=== PATIENT | female | born 1955 | race Caucasian/White ===

== ENCOUNTER 2018-11-14 17:47 | Emergency (ER) | payer SELFPAY ==
[2018-11-14 19:08] LABS: #Basophils 0.1 thou/uL (0.0-0.2); #Eosinphils 0.1 thou/uL (0.0-0.7); #Lymphocytes 1.8 thou/uL (1.20-3.40); #Monocytes 0.4 thou/uL (0.11-0.59); #Neutrophils 3.7 thou/uL (1.40-6.50); %Basophils 1.3 % (0.0-1.0); %Eosinophils 1.1 % (0.0-10.0); %Lymphocytes 29.8 % (21.0-51.0); %Monocytes 7.2 % (0.0-10.0); %Neutrophils 60.6 % (42.0-75.0); Hemoglobin 10.6 g/dL (12.0-16.0); Mean Corpuscular HGB CONC 32.5 g/dL (32.0-36.0); Mean Corpuscular Hemoglobin 30.6 pg (27.0-31.0); Mean Corpuscular Volume 93.9 fL (78.0-98.0); Mean Platelet Volume 6.9 fL (7.4-10.4); Platelet Count 318 thou/uL (130-400); RBC Distribution Width 13.3 % (11.5-14.5); Red Blood Cell (RBC) Count 3.46 mill/uL (4.20-5.40)
[2018-11-14 19:27] LABS: ALT (SGPT) 33 U/L (8-55); AST (SGOT) 39 U/L (5-34); Alkaline Phosphatase 144 U/L (40-150); Anion Gap 14 mmol/L (10-20); BUN (Urea Nitrogen) 11 mg/dL (9.8-20.1); Bilirubin, Total Less than 0.2 mg/dL (0.2-1.2); Calc. Creatinine Clearance 0 mL/min (70-130); Calcium 9.3 mg/dL (7.8-10.44); Carbon Dioxide 24 mmol/L (23-31); Chloride 108 mmol/L (98-107); Estimated GFR-MDRD 74; Globulin 3.4 g/dL (2.4-3.5); Glucose 107 mg/dL (80-115); Potassium 3.3 mmol/L (3.5-5.1); Protein, Total 7.4 g/dL (6.0-8.3); Sodium 143 mmol/L (136-145)
--- NOTE | 2018-11-14 19:44 | ULT ---
EXAM: Left lower extremity venous Doppler HISTORY: left lower extremity edema and pain FINDINGS: Grayscale, color-flow, Doppler evaluation, spectral analysis of the left lower extremity venous struc tures is performed with 2-D imaging. The left common femoral, superficial femoral, popliteal, posterior tibial, proximal greater saphenous and profunda femoral veins are imaged. There is normal luminal compressibility, flow, and augmentation the visualized deep venous structures of the left lower extremity. IMPRESSION: No evidence of a deep vein thrombosis in the visualized deep venous structures left lower extremity.
== END 2018-11-14 21:10 | disposition home or self-care (01) ==
LOC: ERS 17:47
DX: L03.116 Cellulitis of left lower limb (principal); I10 Essential (primary) hypertension; F41.9 Anxiety disorder, unspecified; F17.210 Nicotine dependence, cigarettes, uncomplicated
CPT/HCPCS: 36415; 80053; 85025; 85379

== ENCOUNTER 2020-05-11 12:30 | Inpatient (IN) | payer MEDICARE ==
[2020-05-15 10:43] VITALS: BMI 19.5
[2020-05-16] MEDS ORDERED: Rocuronium Bromide 10 MG/ML (10ML VIAL) ONE (11:30)
[2020-05-16] MEDS ORDERED: Ondansetron PF 4 MG/2 ML Vial ONE (11:30)
[2020-05-16] MEDS ORDERED: Dexamethasone 20 MG/5 ML VIAL ONE (11:30)
[2020-05-16] MEDS ORDERED: Lidocaine 1.5% w/Epi 1:200K 30 ML VIAL (Epid Use) ONE (11:30)
[2020-05-16] MEDS ORDERED: Lidocaine 1% PF 5 ML VIAL ONE ×2 (11:30)
[2020-05-16] MEDS ORDERED: PHENYLEPHRINE-NS 100 MCG/ML 10 ML SYRINGE ONE (11:30)
[2020-05-16] MEDS ORDERED: PROPOFOL 200 MG/20 ML VIAL ONE (11:30)
[2020-05-16] MEDS ORDERED: EPHEDRINE 25 MG/5 ML SYRINGE ONE (11:30)
[2020-05-16] MEDS ORDERED: Glycopyrrolate 0.2 MG/ML 5 ML SYRINGE ONE (11:30)
[2020-05-16] MEDS ORDERED: Tranexamic Acid 1,000 MG/10 ML VIAL ONE (12:50)
[2020-05-16] MEDS ORDERED: Vancomycin 1 GM/200 ML BAG ONE (12:50)
[2020-05-16] MEDS ORDERED: Sodium Chloride 0.9% 100 ML ONE (12:50)
[2020-05-16] MEDS ORDERED: Scopolamine 1.5 mg/72 hour Patch ONE (12:50)
[2020-05-16] MEDS ORDERED: Zolpidem Tartrate 5 MG TAB PO PRN ×2 (12:56→14:00)
[2020-05-16] MEDS ORDERED: diphenhydrAMINE 25 MG CAP PO PRN ×2 (12:56→14:00)
[2020-05-16] MEDS ORDERED: Acetaminophen 325 MG TAB PO PRN (12:56)
[2020-05-16] MEDS ORDERED: Fentanyl 100 MCG/2 ML VIAL SLOW IVP PRN (12:56)
[2020-05-16] MEDS ORDERED: Ondansetron PF 4 MG/2 ML Vial IVP PRN ×2 (12:56→14:00)
[2020-05-16] MEDS ORDERED: Promethazine HCl 25 MG/ML VIAL IM PRN ×2 (12:56→14:00)
[2020-05-16] MEDS ORDERED: HYDROcodone/Acetaminophen 10/325 mg Tablet PO PRN ×2 (12:56)
[2020-05-16] MEDS ORDERED: Buprenorphine 8mg/Naloxone 2mg per 1 FILM SL PRN (12:57)
[2020-05-16] MEDS ORDERED: Famotidine 20 MG TAB PO PRN (12:57)
[2020-05-16] MEDS ORDERED: tiZANidine HCl 4 MG TAB PO PRN (12:57)
[2020-05-16] MEDS ORDERED: Aspirin/APAP/Caffeine Tab (Excedrin Migraine) PO PRN (12:57)
[2020-05-16] MEDS ORDERED: Fentanyl 100 MCG/2 ML VIAL ONE ×3 (13:07→15:42)
[2020-05-16] MEDS ORDERED: Bupivacaine 0.25% HCL 30 ML VIAL ONE (13:07)
[2020-05-16] MEDS ORDERED: Midazolam HCl 2 mg/2 ml Vial ONE (13:09)
[2020-05-16] MEDS ORDERED: Acetaminophen 500 MG TAB PO PRN (13:56)
[2020-05-16] MEDS ORDERED: Bupivacaine 0.25% 10 ML VIAL EPIDURAL PRN (14:00)
[2020-05-16] MEDS ORDERED: Naloxone HCl 0.4 mg/ml Vial IVP PRN (14:00)
[2020-05-16] MEDS ORDERED: diphenhydrAMINE 50 MG/ML VIAL IVP PRN (14:00)
[2020-05-16] MEDS ORDERED: traMADol HCl 50 MG TAB PO PRN ×2 (14:00)
[2020-05-16] MEDS ORDERED: Promethazine HCl 25 MG SUPP PR PRN (14:00)
[2020-05-16] MEDS ORDERED: diphenhydrAMINE 50 MG/ML VIAL IM PRN (14:00)
[2020-05-16] MEDS ORDERED: Hydrocerin (Eucerin) Cream 120 gm Jar TOP PRN (14:00)
[2020-05-16] MEDS ORDERED: Ketorolac Tromethamine 30 MG/ML VIAL IVP SCH (14:00)
[2020-05-16] MEDS ORDERED: Naloxone HCl 0.4 mg/ml Vial IV PRN (14:00)
[2020-05-16] MEDS ORDERED: HYDROcodone/Acetaminophen 5/325 mg Tablet PO PRN ×2 (14:00)
[2020-05-16] MEDS ORDERED: fentaNYL Citrate/PF 500 MCG, Bupivacaine 10 ML in Sodium Chloride 0.9% 80 ML EPIDURAL SCH (14:00)
[2020-05-16] MEDS ORDERED: Ketorolac Tromethamine 30 MG/ML VIAL ONE (15:36)
--- NOTE | 2020-05-16 16:10 | RAD ---
Exam:2 views left hip HISTORY: Status post arthroplasty COMPARISON: 04/05/2020 FINDINGS: Postsurgical changes compatible with left hip arthroplasty. There are expected postoperativ e changes in the soft tissues. Near anatomic alignment. IMPRESSION: Findings compatible with left hip arthroplasty.
[2020-05-16] MEDS: Ketorolac Tromethamine 30 MG/ML VIAL IVP SCH ×2 (19:56→23:40)
[2020-05-16] MEDS ORDERED: Sodium Chloride 0.9% 500 ML IV SCH (20:00)
[2020-05-16] MEDS: Sodium Chloride 0.9% 1,000 ML IV SCH (20:30)
[2020-05-16] MEDS: CEFAZOLIN 2 GM in Premix Bag 1 BAG IVPB SCH (20:36)
[2020-05-16] MEDS: Aspirin 81 mg Enteric Coated Tablet PO SCH (21:34)
--- NOTE | 2020-05-16 21:42 | PDOC.HHP ---
Hospitalist HPI - History of Present Illness Left hip pain History of Present Illness: The patient is a 65-year-old female with a past medical history significant for scoliosis and degenerative joint disease and GERD that presents to the hospital for a scheduled left total hip replacement by Dr. Berry. The patient has had increased pain and swelling to her left lower extremity. For these reasons she was scheduled for a left total hip replacement. Apparently, after surgery, the patient came to the floor with a low blood pressure and was lethargic. The patient was not getting any IV fluids and did have a fentanyl block infusing. The nurse called Dr. Dobbs, who was the on-call orthopedic. The block was stopped. IV fluids were started. We were consulted for management of the blood pressure. The patient reports that she has a history of low blood pressure. She denies any fever or chills. No recent illness. She denies feeling short of breath, cough or wheezing. She is not on any chronic steroids. She denies any chest pain, heart palpitations, lightheadedness. She denies any abdominal pain, nausea, vomiting, diarrhea. She denies any hemoptysis, hematochezia/melena. She denies any endocrine disorders. ED Course: Direct admit. Hospitalist ROS - Review of Systems All other systems reviewed; all pertinent +/- noted in HPI/Subj - Medication Medications: Active Medications Generic Name Dose Route Start Last Admin Trade Name Freq PRN Reason Stop Dose Admin Aspirin 81 mg 05/16/20 21:00 05/16/20 21:34 Aspirin 81 Mg Enteric Coated Tablet PO 81 mg BID GREG Administration Sodium Chloride 1,000 mls @ 125 mls/hr 05/16/20 20:00 05/16/20 20:30 Normal Saline 0.9% IV 1,000 mls .Q8H GREG Administration Ketorolac Tromethamine 30 mg 05/16/20 18:00 05/16/20 19:56 Ketorolac Tromethamine 30 Mg/Ml Vial IVP 05/18/20 12:01 Not Given Q6HR [facility] Home medications: 1. Excedrin Migraine as needed 2. Pepcid 20 mg p.o. twice daily as needed 3. Woman's 50+ multivitamin daily 4. Tizanidine as needed. Allergies: Latex, ciprofloxacin Hospitalist History - Past Medical History Source: patient, RN notes reviewed Cardiac: reports: no pertinent history Pulmonary: reports: no pertinent history STUDIO MANAGER: reports: Migraine Musculoskeletal: reports: Other (Degenerative joint disease, scoliosis) - Past Surgical History Past Surgical History: reports: (X5), Hernia Repair - Family History Family History: reports: no pertinent history Other Family History: Noncontributory to this case - Social History Smoking Status: Current every day smoker (Half pack per day) Tobacco Type: cigarettes Alcohol: reports: None Drugs: reports: none Living Situation: Alone Occupation: Works as a [employer]ATOR Activity level: uses cane/walker - Exam General Appearance: NAD, awake alert. negative: ill appearing Eye: PERRL, anicteric sclera ENT: normocephalic atraumatic, dry oral mucosa Neck: supple, symmetric, no JVD Heart: RRR, no murmur, no gallops, no rubs, normal peripheral pulses Respiratory: CTAB, no wheezes, no rales, no ronchi, normal chest expansion, no tachypnea Gastrointestinal: soft, non-tender, normal bowel sounds, no bruit, no guarding, no rigidity Extremities: no cyanosis, no edema Skin: no rashes Neurological: cranial nerve grossly intact, no focal deficits. negative: facial droop, speech deficit Musculoskeletal - other findings: Status post left hip replacement Psychiatric: normal affect, A&O x 3 Hospitalist Results - Labs Lab results: Reviewed 05/09/2020: Sodium 142, potassium 4.8, chloride 107, CO2 23, BUN 29, creatinine 0.86, glucose 89, calcium 10 WBC 7.9, hemoglobin 12.6, hematocrit 36, platelets 236 Covid negative Hospitalist H&P A/P - Problem (1) Hypotension Status: Acute (2) Degenerative joint disease Code(s): M19.90 - UNSPECIFIED OSTEOARTHRITIS, UNSPECIFIED SITE Status: Chronic (3) GERD (gastroesophageal reflux disease) Code(s): K21.9 - GASTRO-ESOPHAGEAL REFLUX DISEASE WITHOUT ESOPHAGITIS Status: Chronic (4) Status post total hip replacement, left Code(s): Z96.642 - PRESENCE OF LEFT ARTIFICIAL HIP JOINT Status: Acute - Plan Plan: 65/F with PMH DJD, GERD presents for scheduled left total hip replacement. We were consulted for medical management for low blood pressure reading. Patient admitted to surgical floor, inpatient status. Expected length of stay greater than 2 midnights. #Hypotension Nursing called to report blood pressure reading 80s/50s. Called Dr. Dobbs, on-call orthopedic. Ordered IV fluids and stop fentanyl block. Upon assessment, patient alert and oriented x4. BP 98/65. Afebrile. Glucose WNL. Continue IV fluid hydration, analgesia as needed. #Degenerative joint disease Chronic. #GERD Takes Pepcid twice daily as needed. Agreed to continue home dose of Pepcid. #Status post total hip replacement, left Performed by Dr. Berry. Clinical course per orthopedics. Aspirin for DVT prophylaxis. Pepcid for GI prophylaxis. Fentanyl nerve block per anesthesia. Full code. Family contact is her sister Charmaine Severino at [phone]. Discussed the case with Dr. Samaniego.
[2020-05-17] MEDS: Ketorolac Tromethamine 30 MG/ML VIAL IVP SCH ×4 (05:15→23:35)
[2020-05-17] MEDS: CEFAZOLIN 2 GM in Premix Bag 1 BAG IVPB SCH (05:15)
[2020-05-17] MEDS: Sodium Chloride 0.9% 1,000 ML IV SCH ×4 (05:16→23:35)
[2020-05-17 05:41] LABS: Hemoglobin 10.4 g/dL (12.0-16.0); Mean Corpuscular HGB CONC 33.4 g/dL (32.0-36.0); Mean Corpuscular Hemoglobin 33.6 pg (27.0-31.0); Mean Platelet Volume 7.1 fL (7.4-10.4); Platelet Count 206 thou/uL (130-400); RBC Distribution Width 11.5 % (11.5-14.5); Red Blood Cell (RBC) Count 3.11 mill/uL (4.20-5.40); White Blood Cell (WBC) Count 9.6 thou/uL (4.8-10.8)
[2020-05-17 06:01] LABS: Anion Gap 12 mmol/L (10-20); BUN (Urea Nitrogen) 16 mg/dL (9.8-20.1); Calc. Creatinine Clearance 62 mL/min (70-130); Calcium 8.4 mg/dL (7.8-10.44); Carbon Dioxide 23 mmol/L (23-31); Chloride 109 mmol/L (98-107); Estimated GFR-MDRD 83; Glucose 113 mg/dL (80-115); Potassium 4.5 mmol/L (3.5-5.1); Sodium 139 mmol/L (136-145)
[2020-05-17] MEDS: Ferrous Gluconate 324 MG TAB PO SCH ×2 (08:45→18:17)
[2020-05-17] MEDS: Multivitamin W/ Minerals 1 TAB PO SCH (08:46)
[2020-05-17] MEDS: Aspirin 81 mg Enteric Coated Tablet PO SCH ×2 (08:46→19:50)
[2020-05-17] MEDS: Senokot S 8.6-50 MG TAB PO SCH ×2 (08:46→19:50)
[2020-05-17] MEDS ORDERED: Non-Formulary Item 1 EACH (Mv-Mn/Folic Ac/Calcium/Vit K1 [Women's 50 Plus Multivit Tab] 1 PO SCH (09:00)
--- NOTE | 2020-05-17 09:05 | OP ---
DATE OF PROCEDURE: 05/16/2020 This is Arnie Loving PA-C dictating a report for Florian Berry MD. PREOPERATIVE DIAGNOSIS: End-stage bicompartmental osteoarthritis, left hip. POSTOPERATIVE DIAGNOSIS: End-stage bicompartmental osteoarthritis, left hip. PROCEDURE PERFORMED: Press-fit left total hip arthroplasty. COTTON CLASSER AIDE: Arnie Loving PA-C ANESTHESIA: General via endotracheal tube augmented with indwelling epidural. COMPONENTS USED: [employer] Trident II titanium press-fit 48 mm press-fit acetabular shell with an Accolade II press-fit size 4 hip stem, 0 degree polyethylene fixed bearing insert, and a Biolox 36 mm outer diameter, -5 neck length ceramic femoral head. ESTIMATED BLOOD LOSS: 100. FINDINGS: End-stage severe degenerative bicompartmental disease, [id number] arthrosis, periarticular osteophyte formation, large serous effusion, hypertrophic synovium, and changes consistent with chronic degenerative osteoarthritis. DRAINS: None. SPECIMENS: None. COMPLICATIONS: None. COUNTS: Correct. INPUT: 1 L crystalloid. OUTPUT: 500 mL clear yellow urine. INDICATION FOR SURGERY: Kassandra is a 65-year-old white female, who has had progressive left hip groin and thigh pain, and problem with standing or walking for the last 5 to 7 years. She has failed conservative management, elected to proceed with total hip arthroplasty as definitive treatment of her pain. PROCEDURE IN DETAIL: After informed consent was obtained in the preoperative holding area, the patient was taken to the operative suite where general anesthesia was induced. The patient was then positioned in the lateral decubitus position. The hip was then prepped and draped in usual sterile fashion. The patient received preoperative antibiotics. Prior to incision, time-out was called and all members of the surgical team agreed upon site, surgeon, and patient. After this, a longitudinal incision was made directly over the trochanter, noted by palpation extending 2 fingerbreadths above and below the trochanter. The deeper subcutaneous layer was undermined with Bovie electrocautery. The iliotibial band was encountered and incised sharply and the plane below this was developed bluntly. A Charnley retractor was placed to hold this opened. The lateral aspect of the trochanter and the abductor muscles were encountered and then reflected anteriorly off the trochanter using Bovie electrocautery. Once this was completed, the anterior capsule was then encountered and identified and copious capsulotomy was carried out, exposing the femoral neck and head. Dislocation maneuver was then performed and an in situ provisional neck cut was then made using the oscillating saw. Attention was then turned to acetabular preparation. Sequential reaming was carried out up to the appropriate diameter and a trial was then malleted into place with good firm resistance and no pullout. The permanent acetabular shell was then malleted squarely into place, as was the appropriate liner. Once completed, the wound was copiously irrigated and attention was then turned to femoral preparation. Flexion and external rotation were performed of the exposed thigh and femoral elevators were then placed at the proximal aspect of the wound. Canal finder was used to establish the length of the canal and sequential reaming was carried out, followed by broaching. Once the appropriate stability was established with the trial broaches with flexion, extension and rotational stability, we did trial with neutral and 2 mm offset incremental necks. Once the appropriate size was decided upon, with good stability noted with flexion, extension, internal and external rotation and shuck being negative, we removed the femoral trial broach and malleted into place the permanent prosthesis with good firm fit, which was also stable to rotation. Again, the hip felt very stable to flexion, extension, internal and external rotation. Leg lengths appeared near anatomic clinically and we were quite happy with prosthesis placement. Copious irrigation was then carried out through the entirety of the wound. Primary closure of the abductors was accomplished with interrupted #2 Vicryl [id number] stitches and the IT band was then closed with interrupted #2 Vicryl, oversewn with a #2 running barbed Quill stitch. Subcutaneous fascia was closed with running barbed Quill stitch and a subcuticular Monocryl barbed Quill stitch was used for skin closure and augmented with skin cement. A sterile dressing was applied. The procedure was terminated without any complication. All counts were correct. The patient was awakened in the operative suite and taken to the recovery room in stable condition. The assistant track coach surgeon helped throughout the procedure by positioning the patient, stabilizing the limb, holding retractors, aligning the prosthesis, and closure of procedure site. The assistant track coach/co-surgeon was present through the entire procedure and was responsible for providing exposure, tissue retraction and any necessary limb or tissue manipulation required to obtain necessary reduction or hardware placement. The assistant track coach/co-surgeon also provided bleeding control, tissue closure, and suturing in conjunction with the primary surgeon. Job ID: [id number]
--- NOTE | 2020-05-17 14:00 | PDOC.HOSPP ---
- Subjective Encounter Date: 05/17/20 Subjective: Patient was seen and examined. She denies any new complaints today. - Objective Vital Signs & Weight: Vital Signs (12 hours) Temp Pulse Resp BP BP BP BP 05/17/20 11:04 99.0 F 66 16 103/50 L 05/17/20 09:42 89/52 L 101/60 05/17/20 08:00 05/17/20 07:27 99.2 F 66 16 94/53 L 05/17/20 05:18 98.1 F 72 14 104/65 Pulse Ox 05/17/20 11:04 94 L 05/17/20 09:42 05/17/20 08:00 96 05/17/20 07:27 96 05/17/20 05:18 98 Weight Weight 110 lb I&O: 05/16/20 05/17/20 05/18/20 06:59 06:59 06:59 Intake Total 2200 Output Total 1225 Balance 975 Result Diagrams: 05/17/20 05:25 05/17/20 05:25 Hospitalist ROS - Medication Medications: Active Medications Generic Name Dose Route Start Last Admin Trade Name Freq PRN Reason Stop Dose Admin Aspirin 81 mg 05/16/20 21:00 05/17/20 08:46 Aspirin 81 Mg Enteric Coated Tablet PO 81 mg BID GREG Administration Ferrous Gluconate 324 mg 05/17/20 08:00 05/17/20 08:45 Ferrous Gluconate 324 Mg Tab PO 324 mg BID-WM GREG Administration Sodium Chloride 1,000 mls @ 125 mls/hr 05/16/20 20:00 05/17/20 13:40 Normal Saline 0.9% IV 1,000 mls .Q8H GREG Administration Iron/Minerals/Multivitamins 1 tab 05/17/20 09:00 05/17/20 08:46 Multivitamin W/ Minerals 1 Tab PO 1 tab DAILY GREG Administration Ketorolac Tromethamine 30 mg 05/16/20 18:00 05/17/20 13:39 Ketorolac Tromethamine 30 Mg/Ml Vial IVP 05/18/20 12:01 30 mg Q6HR GREG Administration Senna/Docusate Sodium 2 tab 05/17/20 09:00 05/17/20 08:46 Senokot S 8.6-50 Mg Tab PO 2 tab BID GREG Administration - Exam General Appearance: awake alert ENT: normocephalic atraumatic Neck: supple, no JVD Heart: RRR Respiratory: no tachypnea Gastrointestinal: soft Neurological: cranial nerve grossly intact, no focal deficits Hosp A/P (1) Hypotension Status: Acute (2) Status post total hip replacement, left Code(s): Z96.642 - PRESENCE OF LEFT ARTIFICIAL HIP JOINT Status: Acute (3) Degenerative joint disease Code(s): M19.90 - UNSPECIFIED OSTEOARTHRITIS, UNSPECIFIED SITE Status: Chronic (4) GERD (gastroesophageal reflux disease) Code(s): K21.9 - GASTRO-ESOPHAGEAL REFLUX DISEASE WITHOUT ESOPHAGITIS Status: Chronic - Plan The patient hypotension has improved since yesterday. Continue IV hydration for the next 24 hours. Continue postoperative management per surgical team. Lovenox for DVT prophylaxis. PT and OT evaluation.
[2020-05-17] MEDS ORDERED: Sodium Chloride 0.9% 1,000 ML IV SCH (23:45)
[2020-05-18] MEDS ORDERED: Hydrocortisone Sod Succ/PF 100 mg/2 ml Vial IVP SCH (00:30)
--- NOTE | 2020-05-18 01:39 | PDOC.EVN ---
Event Note - Event Note Event Note: Nursing called, patient hypotensive, asymptomatic. Afebrile. Fentanyl block held. Gave 1L NS. Review of vital signs shows BP stable throughout dayshift, then drops at night. Likely normal physiologic response at night. No signs of FVO. Will give 1 more 500ml bolus. Discussed with Dr. Samaniego.
[2020-05-18] MEDS ORDERED: Sodium Chloride 0.9% 500 ML IV SCH (01:45)
[2020-05-18 05:24] LABS: Hemoglobin 8.5 g/dL (12.0-16.0); Mean Corpuscular HGB CONC 32.2 g/dL (32.0-36.0); Mean Platelet Volume 7.1 fL (7.4-10.4); Platelet Count 147 thou/uL (130-400); RBC Distribution Width 11.7 % (11.5-14.5); Red Blood Cell (RBC) Count 2.58 mill/uL (4.20-5.40)
[2020-05-18] MEDS: Ketorolac Tromethamine 30 MG/ML VIAL IVP SCH ×2 (05:41→12:48)
[2020-05-18 07:50] VITALS: BP 91/51; TEMP 97.9
[2020-05-18] MEDS: Ferrous Gluconate 324 MG TAB PO SCH ×3 (09:32→16:32)
[2020-05-18] MEDS: Aspirin 81 mg Enteric Coated Tablet PO SCH (09:33)
[2020-05-18] MEDS: Multivitamin W/ Minerals 1 TAB PO SCH (09:34)
[2020-05-18] MEDS: Senokot S 8.6-50 MG TAB PO SCH (09:34)
[2020-05-18] MEDS ORDERED: HYDROcodone/Acetaminophen 10/325 mg Tablet PO PRN ×2 (10:26)
--- NOTE | 2020-05-18 11:58 | PDOC.HOSPP ---
- Subjective Encounter Date: 05/18/20 Subjective: Patient has no new complaints today. She denies any dizziness, palpitations, chest pain, or syncope. - Objective Vital Signs & Weight: Vital Signs (12 hours) Temp Pulse Resp BP BP Pulse Ox 05/18/20 09:38 95 05/18/20 07:49 97.9 F 52 L 12 91/51 L 92 L 05/18/20 03:25 98.3 F 75 16 85/51 L 95 05/18/20 02:35 57 L 92/58 L Weight Admit Weight 110 lb Weight 110 lb I&O: 05/17/20 05/18/20 05/19/20 06:59 06:59 06:59 Intake Total 2200 4505 Output Total 1225 2325 Balance 975 2180 Result Diagrams: 05/18/20 05:05 05/17/20 05:25 Hospitalist ROS - Medication Medications: Active Medications Generic Name Dose Route Start Last Admin Trade Name Freq PRN Reason Stop Dose Admin Aspirin 81 mg 05/16/20 21:00 05/18/20 09:33 Aspirin 81 Mg Enteric Coated Tablet PO 81 mg BID GREG Administration Ferrous Gluconate 324 mg 05/17/20 08:00 05/18/20 09:32 Ferrous Gluconate 324 Mg Tab PO 324 mg BID-WM GREG Administration Sodium Chloride 1,000 mls @ 125 mls/hr 05/16/20 20:00 05/17/20 23:35 Normal Saline 0.9% IV 1,000 mls .Q8H GREG Administration Iron/Minerals/Multivitamins 1 tab 05/17/20 09:00 05/18/20 09:34 Multivitamin W/ Minerals 1 Tab PO 1 tab DAILY GREG Administration Ketorolac Tromethamine 30 mg 05/16/20 18:00 05/18/20 05:41 Ketorolac Tromethamine 30 Mg/Ml Vial IVP 05/18/20 12:01 30 mg Q6HR GREG Administration Ondansetron HCl 4 mg 05/16/20 14:00 05/17/20 22:31 Ondansetron Pf 4 Mg/2 Ml Vial IVP 4 mg Q6H PRN Administration Nausea/Vomiting Senna/Docusate Sodium 2 tab 05/17/20 09:00 05/18/20 09:34 Senokot S 8.6-50 Mg Tab PO 2 tab BID GREG Administration Tizanidine HCl 4 mg 05/16/20 12:57 05/17/20 14:36 Tizanidine Hcl 4 Mg Tab PO 4 mg Q6H PRN Administration Muscle Spasm - Exam General Appearance: awake alert ENT: normocephalic atraumatic Neck: supple, no JVD Respiratory: normal chest expansion, no tachypnea Extremities: no cyanosis, no clubbing Neurological: cranial nerve grossly intact, no focal deficits Hosp A/P (1) Hypotension Status: Acute (2) Status post total hip replacement, left Code(s): Z96.642 - PRESENCE OF LEFT ARTIFICIAL HIP JOINT Status: Acute (3) Degenerative joint disease Code(s): M19.90 - UNSPECIFIED OSTEOARTHRITIS, UNSPECIFIED SITE Status: Chronic (4) GERD (gastroesophageal reflux disease) Code(s): K21.9 - GASTRO-ESOPHAGEAL REFLUX DISEASE WITHOUT ESOPHAGITIS Status: Chronic - Plan The patient systolic blood pressure is in the mid 90s. The patient is completely asymptomatic. Continue postoperative management per surgical team. She is medically stable to be discharged. Lovenox for DVT prophylaxis. PT and OT evaluation.
[2020-05-18] MEDS: Sodium Chloride 0.9% 1,000 ML IV SCH (12:50)
== END 2020-05-18 16:50 | disposition home or self-care (01) | DRG 470 ==
LOC: SJJU 05-16 12:05
PROVIDERS: ADMIT Orthopaedic Surgery; ATTEND Internal Medicine
PROC: 0SRB049 Replacement of Left Hip Joint with Ceramic on Polyethylene Synthetic Substitute, Cemented, Open Approach (ICD-10-PCS; principal; 2020-05-16)
DX: M16.12 Unilateral primary osteoarthritis, left hip (principal); K21.9 Gastro-esophageal reflux disease without esophagitis; F17.210 Nicotine dependence, cigarettes, uncomplicated; I95.9 Hypotension, unspecified; Z79.82 Long term (current) use of aspirin; Z91.040 Latex allergy status; Z88.1 Allergy status to other antibiotic agents
CPT/HCPCS: 36415; 80048; 82533; 85027; J0690; J1100; J1885; J2001; J2250; J2405; J2704; J3010; J3370; J3490; S0020

== ENCOUNTER 2020-05-12 06:31 | Outpatient (CLI) | payer MEDICARE, OTHER ==
[2020-05-12 15:52] LABS: #Basophils 0.1 thou/uL (0.0-0.2); #Eosinphils 0.1 thou/uL (0.0-0.7); #Lymphocytes 1.6 thou/uL (1.20-3.40); #Monocytes 0.5 thou/uL (0.11-0.59); #Neutrophils 5.7 thou/uL (1.40-6.50); %Basophils 0.9 % (0.0-1.0); %Eosinophils 0.8 % (0.0-10.0); %Lymphocytes 20.1 % (21.0-51.0); %Neutrophils 72.1 % (42.0-75.0); Hemoglobin 12.6 g/dL (12.0-16.0); Mean Corpuscular HGB CONC 35.1 g/dL (32.0-36.0); Mean Corpuscular Hemoglobin 34.4 pg (27.0-31.0); Mean Corpuscular Volume 98.1 fL (78.0-98.0); Mean Platelet Volume 7.7 fL (7.4-10.4); Platelet Count 236 thou/uL (130-400); RBC Distribution Width 11.3 % (11.5-14.5); Red Blood Cell (RBC) Count 3.67 mill/uL (4.20-5.40); White Blood Cell (WBC) Count 7.9 thou/uL (4.8-10.8)
[2020-05-12 16:11] LABS: INR-International Normal Ratio 0.9; Prothrombin Time 12.2 sec (12.0-14.7)
[2020-05-12 16:24] LABS: Anion Gap 17 mmol/L (10-20); BUN (Urea Nitrogen) 29 mg/dL (9.8-20.1); Calc. Creatinine Clearance 0 mL/min (70-130); Carbon Dioxide 23 mmol/L (23-31); Chloride 107 mmol/L (98-107); Estimated GFR-MDRD 66; Glucose 89 mg/dL (80-115); Potassium 4.8 mmol/L (3.5-5.1); Sodium 142 mmol/L (136-145)
[2020-05-13 11:58] LABS: SARS-CoV-2 MS2 Positive; SARS-CoV-2 N Gene Negative; SARS-CoV-2 S Gene Negative; SARS-CoV-2 by NAA Not Detected (NotDetected); SARS-CoV-2 orf1ab Negative
== END 2020-05-12 06:32 | disposition home or self-care (01) ==
LOC: LABBT 06:31
PROVIDERS: ATTEND Orthopaedic Surgery
DX: Z01.812 Encounter for preprocedural laboratory examination (principal); Z20.828 Contact with and (suspected) exposure to other viral communicable diseases; M16.12 Unilateral primary osteoarthritis, left hip
CPT/HCPCS: 80048; 85025; 85610; 87081; U0003; 87635

== ENCOUNTER 2022-01-01 15:17 | Emergency (ER) | payer MEDICARE ==
[~2022-01-01 15:17] MED LIST: Iopamidol-370 76% 500 ML 1 ML ONE
[2022-01-01 15:43] LABS: #Eosinphils 0.1 thou/uL (0.0-0.7); #Lymphocytes 1.8 thou/uL (1.20-3.40); #Monocytes 0.4 thou/uL (0.11-0.59); #Neutrophils 2.9 thou/uL (1.40-6.50); %Basophils 0.5 % (0.0-1.0); %Eosinophils 1.3 % (0.0-10.0); %Lymphocytes 34.8 % (21.0-51.0); %Monocytes 7.5 % (0.0-10.0); %Neutrophils 55.9 % (42.0-75.0); Hemoglobin 12.8 g/dL (12.0-16.0); Mean Corpuscular HGB CONC 33.7 g/dL (32.0-36.0); Mean Platelet Volume 6.3 fL (7.4-10.4); Platelet Count 245 thou/uL (130-400); RBC Distribution Width 11.7 % (11.5-14.5); Red Blood Cell (RBC) Count 3.66 mill/uL (4.20-5.40); White Blood Cell (WBC) Count 5.2 thou/uL (4.8-10.8)
[2022-01-01 15:59] LABS: ALT (SGPT) 21 U/L (8-55); AST (SGOT) 21 U/L (5-34); Albumin 4.7 g/dL (3.4-4.8); Alkaline Phosphatase 68 U/L (40-110); Anion Gap 15 mmol/L (10-20); BUN (Urea Nitrogen) 17 mg/dL (9.8-20.1); Bilirubin, Total 0.2 mg/dL (0.2-1.2); Calc. Creatinine Clearance 0 mL/min (70-130); Calcium 10.1 mg/dL (7.8-10.44); Carbon Dioxide 25 mmol/L (23-31); Chloride 106 mmol/L (98-107); Globulin 2.8 g/dL (2.4-3.5); Glucose 100 mg/dL (80-115); Lipase 16 U/L (8-78); Potassium 4.2 mmol/L (3.5-5.1); Protein, Total 7.5 g/dL (5.8-8.1); Sodium 142 mmol/L (136-145)
[2022-01-01 20:57] LABS: Bilirubin Negative (Negative); Blood, Urine Negative (Negative); Clarity Clear (Clear); Glucose, Urine (Dipstick) Normal (Negative); Ketone, Urine Negative (Negative); Leukocyte Negative Leu/uL (Negative); Nitrite Negative (Negative); Protein, Urine (Dipstick) Negative (Neg-Trace); Specific Gravity, Urine 1.008 (1.002-1.036); Urobilinogen Normal mg/dL (Less than 2); pH, Urine 6.5 (5.0-9.0)
== END 2022-01-01 21:45 | disposition home or self-care (01) ==
LOC: ERS 15:17
DX: K59.00 Constipation, unspecified (principal); I10 Essential (primary) hypertension; F17.210 Nicotine dependence, cigarettes, uncomplicated; Z79.899 Other long term (current) drug therapy
CPT/HCPCS: 36415; 74177; 80053; 81003; 83690; 85025; 87086; Q9967

== ENCOUNTER 2022-09-11 07:39 | Outpatient (CLI) | payer MEDICARE ==
[2022-09-11 09:40] LABS: #Basophils 0.1 10x3/uL (0.0-0.2); #Eosinphils 0.2 10x3/uL (0.0-0.5); #Monocytes 0.6 10x3/uL (0.0-1.1); #Neutrophils 4.9 10x3/uL (1.5-8.4); %Basophils 0.8 % (0.0-2.0); %Eosinophils 2.1 % (0.0-6.0); %Lymphocytes 25.5 % (18.0-47.0); %Monocytes 8.2 % (0.0-10.0); %Neutrophils 63.1 % (40.0-75.0); Hemoglobin 10.7 g/dL (12.0-15.5); Mean Corpuscular HGB CONC 31.4 g/dL (32.0-36.0); Mean Corpuscular Hemoglobin 31.5 pg (27.0-33.0); Mean Corpuscular Volume 100.3 fl (81.6-98.3); Mean Platelet Volume 9.5 fl (7.4-10.4); Platelet Count 383 10x3/uL (150-450); RBC Distribution Width 13.9 % (11.5-14.5); White Blood Cell (WBC) Count 7.8 10x3/uL (3.5-10.5)
[2022-09-11 09:58] LABS: INR-International Normal Ratio 0.9; Prothrombin Time 9.8 sec (9.5-12.1)
[2022-09-11 10:00] LABS: Anion Gap 16 mmol/L (10-20); BUN (Urea Nitrogen) 27 mg/dL (9.8-20.1); Calc. Creatinine Clearance 0 mL/min (70-130); Carbon Dioxide 20 mmol/L (23-31); Chloride 110 mmol/L (98-107); Estimated GFR 70; Glucose 92 mg/dL (80-115); Potassium 4.3 mmol/L (3.5-5.1); Sodium 142 mmol/L (136-145)
== END 2022-09-11 07:40 | disposition home or self-care (01) ==
LOC: LABBT 07:39
PROVIDERS: ATTEND Orthopaedic Surgery
DX: Z01.812 Encounter for preprocedural laboratory examination (principal); M87.051 Idiopathic aseptic necrosis of right femur
CPT/HCPCS: 80048; 85025; 85610; 87081; 93005; 93010

== ENCOUNTER 2022-09-17 09:53 | Inpatient (IN) | payer MEDICARE ==
[2022-09-17] MEDS ORDERED: Ropivacaine 0.5% HCl/PF (150 MG/30 ML VIAL) ONE (10:19)
[2022-09-17] MEDS ORDERED: Midazolam HCl 2 mg/2 ml Vial ONE (10:19)
[2022-09-17] MEDS ORDERED: Fentanyl 100 MCG/2 ML VIAL ONE ×3 (10:19→17:24)
[2022-09-17] MEDS ORDERED: Sodium Chloride 0.9% 100 ML ONE ×3 (10:27→18:09)
[2022-09-17] MEDS ORDERED: CEFAZOLIN 2 GM VIAL ONE ×2 (10:27→18:08)
[2022-09-17] MEDS ORDERED: Tranexamic Acid 1,000 MG/10 ML VIAL ONE (10:27)
[2022-09-17] MEDS ORDERED: Vancomycin 1 GM/200 ML (FROZEN) BAG ONE (10:28)
[2022-09-17 11:07] LABS: SARS-CoV-2 NAA Rapid Test Not Detected (NotDetected)
[2022-09-17] MEDS ORDERED: Bupivacaine PF 0.5% 30 ML VIAL ONE (11:21)
[2022-09-17] MEDS ORDERED: Propofol 500 MG/50 ML VIAL ONE (11:30)
[2022-09-17] MEDS ORDERED: fentaNYL PF 100 MCG/2 ML SYRINGE ONE (11:31)
[2022-09-17] MEDS ORDERED: diphenhydrAMINE 25 MG CAP PO PRN (11:57)
[2022-09-17] MEDS ORDERED: Fentanyl 100 MCG/2 ML VIAL SLOW IVP PRN ×2 (11:57)
[2022-09-17] MEDS ORDERED: Promethazine HCl 25 MG/ML VIAL IM PRN ×2 (11:57→13:35)
[2022-09-17] MEDS ORDERED: Zolpidem Tartrate 5 MG TAB PO PRN (11:57)
[2022-09-17] MEDS ORDERED: Ondansetron PF 4 MG/2 ML Vial IVP PRN (11:57)
[2022-09-17] MEDS ORDERED: Ondansetron PF 4 MG/2 ML Vial ONE (12:10)
[2022-09-17] MEDS ORDERED: Lidocaine 1% PF 5 ML VIAL ONE (12:10)
[2022-09-17] MEDS ORDERED: PROPOFOL 200 MG/20 ML VIAL ONE (12:10)
[2022-09-17] MEDS ORDERED: Dexamethasone 20 MG/5 ML VIAL ONE (12:10)
[2022-09-17] MEDS ORDERED: Ondansetron HCl/PF 4 MG/2 ML Vial IVP PRN (13:35)
[2022-09-17] MEDS ORDERED: HYDROmorphone 0.5 MG/0.5 ML SYRINGE ONE ×2 (17:58→18:06)
[2022-09-17] MEDS ORDERED: Promethazine HCl 25 MG/ML VIAL ONE (18:14)
[2022-09-17] MEDS: Sodium Chloride 0.9% 1,000 ML IV SCH (18:23)
[2022-09-17] MEDS: CEFAZOLIN 2 GM in Sodium Chloride 0.9% 100 ML IVPB SCH (18:55)
[2022-09-17] MEDS ORDERED: hydrALAZINE 20 MG/ML VIAL SLOW IVP PRN (19:13)
[2022-09-17] MEDS: HYDROcodone/Acetaminophen 10/325 mg Tablet PO PRN (20:46)
[2022-09-17] MEDS: Aspirin 81 mg Enteric Coated Tablet PO SCH (22:12)
[2022-09-17] MEDS: Senokot S 8.6-50 MG TAB PO SCH (22:12)
[2022-09-17] MEDS: Ferrous Gluconate 324 MG TAB PO SCH (22:12)
[2022-09-17] MEDS ORDERED: Amlodipine 5 MG TAB PO SCH (22:30)
[2022-09-18] MEDS: CEFAZOLIN 2 GM in Sodium Chloride 0.9% 100 ML IVPB SCH (02:22)
[2022-09-18] MEDS: Sodium Chloride 0.9% 1,000 ML IV SCH ×3 (03:21→16:13)
[2022-09-18 05:55] LABS: #Lymphocytes 1.4 thou/uL (1.20-3.40); #Monocytes 0.7 thou/uL (0.11-0.59); #Neutrophils 5.4 thou/uL (1.40-6.50); %Basophils 0.3 % (0.0-1.0); %Lymphocytes 18.4 % (21.0-51.0); %Monocytes 9.1 % (0.0-10.0); %Neutrophils 72.2 % (42.0-75.0); Hemoglobin 10.8 g/dL (12.0-16.0); Mean Corpuscular HGB CONC 32.2 g/dL (32.0-36.0); Mean Corpuscular Hemoglobin 33.6 pg (27.0-31.0); Mean Platelet Volume 6.4 fL (7.4-10.4); Platelet Count 307 10x3/uL (130-400); RBC Distribution Width 12.6 % (11.5-14.5); Red Blood Cell (RBC) Count 3.21 mill/uL (4.20-5.40); White Blood Cell (WBC) Count 7.4 10x3/uL (4.8-10.8)
[2022-09-18 06:15] LABS: ALT (SGPT) 14 U/L (8-55); AST (SGOT) 36 U/L (5-34); Albumin 3.4 g/dL (3.4-4.8); Alkaline Phosphatase 96 U/L (40-110); Anion Gap 14 mmol/L (10-20); BUN (Urea Nitrogen) 12 mg/dL (9.8-20.1); Bilirubin, Total Less than 0.2 mg/dL (0.2-1.2); Calc. Creatinine Clearance 53 mL/min (70-130); Calcium 8.6 mg/dL (7.8-10.44); Carbon Dioxide 19 mmol/L (23-31); Chloride 113 mmol/L (98-107); Estimated GFR 80; Globulin 2.8 g/dL (2.4-3.5); Glucose 99 mg/dL (80-115); Potassium 3.8 mmol/L (3.5-5.1); Protein, Total 6.2 g/dL (5.8-8.1); Sodium 142 mmol/L (136-145)
[2022-09-18] MEDS: Multivitamin W/ Minerals 1 TAB PO SCH (08:01)
[2022-09-18] MEDS: Aspirin 81 mg Enteric Coated Tablet PO SCH ×2 (08:01→20:17)
[2022-09-18] MEDS: Ferrous Gluconate 324 MG TAB PO SCH ×2 (08:01→20:18)
[2022-09-18] MEDS: Senokot S 8.6-50 MG TAB PO SCH ×3 (08:01→20:18)
[2022-09-18] MEDS: HYDROcodone/Acetaminophen 10/325 mg Tablet PO PRN ×2 (08:56→14:25)
[2022-09-18] MEDS ORDERED: Amlodipine 5 MG TAB PO SCH (09:00)
[2022-09-18] MEDS ORDERED: Non-Formulary Item 1 EACH (Mv-Mn/Folic Ac/Calcium/Vit K1 [Women's 50 Plus Multivit Tab] 1 PO SCH (09:00)
[2022-09-18] MEDS ORDERED: Sodium Chloride 0.9% 500 ML IV SCH ×3 (16:45→21:45)
[2022-09-18] MEDS: Midodrine HCl 5 MG TAB PO PRN (19:01)
[2022-09-18] MEDS: Acetaminophen 325 MG TAB PO PRN (20:16)
[2022-09-18] MEDS: Cyanocobalamin (Vitamin B-12) 1,000 MCG TAB PO SCH (20:18)
[2022-09-18] MEDS ORDERED: traMADol HCl 50 MG TAB PO SCH (22:30)
[2022-09-18] MEDS ORDERED: Lidocaine 4% Patch TD SCH (22:30)
[2022-09-18] MEDS: Ketorolac Tromethamine 30 MG/ML VIAL IVP SCH ×2 (23:21→23:49)
[2022-09-18 23:25] LABS: Hemoglobin 8.9 g/dL (12.0-16.0)
[2022-09-18] MEDS ORDERED: Sodium Chloride 0.9% 1,000 ML IV SCH (23:45)
[2022-09-19] MEDS ORDERED: Midodrine HCl 5 MG TAB PO SCH (00:15)
[2022-09-19] MEDS: Sodium Chloride 0.9% 1,000 ML IV SCH (04:54)
[2022-09-19] MEDS ORDERED: Sodium Chloride 0.9% 500 ML IV SCH ×2 (05:00→11:30)
[2022-09-19 05:24] LABS: Hemoglobin 8.7 g/dL (12.0-16.0)
[2022-09-19 08:06] LABS: #Eosinphils 0.2 thou/uL (0.0-0.7); #Lymphocytes 2.3 thou/uL (1.20-3.40); #Monocytes 0.6 thou/uL (0.11-0.59); #Neutrophils 4.4 thou/uL (1.40-6.50); %Basophils 0.5 % (0.0-1.0); %Lymphocytes 30.4 % (21.0-51.0); %Monocytes 7.3 % (0.0-10.0); %Neutrophils 58.9 % (42.0-75.0); Hemoglobin 10.1 g/dL (12.0-16.0); Mean Corpuscular HGB CONC 32.9 g/dL (32.0-36.0); Mean Corpuscular Hemoglobin 34.2 pg (27.0-31.0); Mean Platelet Volume 6.8 fL (7.4-10.4); Platelet Count 228 10x3/uL (130-400); RBC Distribution Width 12.9 % (11.5-14.5); Red Blood Cell (RBC) Count 2.96 mill/uL (4.20-5.40); White Blood Cell (WBC) Count 7.5 10x3/uL (4.8-10.8)
[2022-09-19 08:28] LABS: Anion Gap 12 mmol/L (10-20); BUN (Urea Nitrogen) 15 mg/dL (9.8-20.1); Calc. Creatinine Clearance 57 mL/min (70-130); Calcium 8.7 mg/dL (7.8-10.44); Carbon Dioxide 20 mmol/L (23-31); Chloride 114 mmol/L (98-107); Estimated GFR 86; Glucose 73 mg/dL (80-115); Magnesium 1.8 mg/dL (1.6-2.6); Potassium 3.5 mmol/L (3.5-5.1); Sodium 142 mmol/L (136-145)
[2022-09-19] MEDS ORDERED: Multivit, Therapeutic 1 TAB PO SCH (09:00)
[2022-09-19] MEDS: Ferrous Gluconate 324 MG TAB PO SCH ×2 (09:26→20:13)
[2022-09-19] MEDS: Senokot S 8.6-50 MG TAB PO SCH ×2 (09:26→20:14)
[2022-09-19] MEDS: Acetaminophen 325 MG TAB PO PRN (09:27)
[2022-09-19] MEDS: Aspirin 81 mg Enteric Coated Tablet PO SCH ×2 (09:27→20:13)
[2022-09-19] MEDS: Calcium Carbonate 600 MG + Vit D TAB PO SCH ×3 (09:27→17:17)
[2022-09-19] MEDS: Multivitamin W/ Minerals 1 TAB PO SCH ×2 (09:27→09:35)
[2022-09-19] MEDS: Folic Acid 1 MG TAB PO SCH (09:28)
[2022-09-19] MEDS: Midodrine HCl 5 MG TAB PO PRN ×2 (09:28→15:42)
[2022-09-19] MEDS ORDERED: Transdermal Patch Removal TOP SCH (10:30)
[2022-09-19] MEDS ORDERED: Electrolyte Replacement Protocol 1 EACH FS SCH (11:30)
[2022-09-19] MEDS ORDERED: Potassium Chloride 20 MEQ TAB PO SCH (12:00)
[2022-09-19] MEDS ORDERED: Electrolyte Replacement Protocol FS PRN (12:00)
[2022-09-19] MEDS ORDERED: Magnesium 2 GM/50 ML(in water) 2 GM in Premix Bag 1 BAG IVPB SCH (12:00)
[2022-09-19] MEDS ORDERED: Iopamidol 370 76% 100 ML VIAL ONE (12:17)
[2022-09-19] MEDS ORDERED: Polyethylene Glycol 3350 17 GM Packet PO PRN (13:05)
[2022-09-19] MEDS ORDERED: ALPRAZolam 0.25 MG TAB PO PRN (18:15)
[2022-09-19 19:02] VITALS: BMI 21.4
[2022-09-19] MEDS: HYDROcodone/Acetaminophen 10/325 mg Tablet PO PRN ×2 (19:02→23:08)
[2022-09-19] MEDS: Pregabalin 50 MG CAP PO SCH (20:13)
[2022-09-19] MEDS: Cyanocobalamin (Vitamin B-12) 1,000 MCG TAB PO SCH (20:13)
[2022-09-19] MEDS: Famotidine 20 MG TAB PO PRN (23:15)
[2022-09-20] MEDS: HYDROcodone/Acetaminophen 10/325 mg Tablet PO PRN ×3 (03:19→12:27)
[2022-09-20] MEDS: tiZANidine HCl 4 MG TAB PO PRN ×3 (03:19→12:28)
[2022-09-20 04:00] LABS: #Basophils 0.1 thou/uL (0.0-0.2); #Eosinphils 0.2 thou/uL (0.0-0.7); #Lymphocytes 1.4 thou/uL (1.20-3.40); #Monocytes 0.4 thou/uL (0.11-0.59); #Neutrophils 4.4 thou/uL (1.40-6.50); %Basophils 0.9 % (0.0-1.0); %Eosinophils 2.4 % (0.0-10.0); %Lymphocytes 22.4 % (21.0-51.0); %Monocytes 5.8 % (0.0-10.0); %Neutrophils 68.5 % (42.0-75.0); Hemoglobin 9.9 g/dL (12.0-16.0); Mean Corpuscular HGB CONC 33.1 g/dL (32.0-36.0); Mean Corpuscular Hemoglobin 34.1 pg (27.0-31.0); Platelet Count 231 10x3/uL (130-400); RBC Distribution Width 12.5 % (11.5-14.5); White Blood Cell (WBC) Count 6.4 10x3/uL (4.8-10.8)
[2022-09-20 04:23] LABS: Anion Gap 13 mmol/L (10-20); BUN (Urea Nitrogen) 8 mg/dL (9.8-20.1); Calc. Creatinine Clearance 71 mL/min (70-130); Calcium 8.6 mg/dL (7.8-10.44); Carbon Dioxide 19 mmol/L (23-31); Chloride 114 mmol/L (98-107); Estimated GFR 96; Glucose 96 mg/dL (80-115); Potassium 3.8 mmol/L (3.5-5.1); Sodium 142 mmol/L (136-145)
[2022-09-20] MEDS: Calcium Carbonate 600 MG + Vit D TAB PO SCH (08:12)
[2022-09-20] MEDS: Multivitamin W/ Minerals 1 TAB PO SCH (08:13)
[2022-09-20] MEDS: Pregabalin 50 MG CAP PO SCH (08:20)
[2022-09-20] MEDS: Ferrous Gluconate 324 MG TAB PO SCH (08:20)
[2022-09-20] MEDS: Aspirin 81 mg Enteric Coated Tablet PO SCH (08:20)
[2022-09-20] MEDS: Senokot S 8.6-50 MG TAB PO SCH (08:25)
[2022-09-20] MEDS: Folic Acid 1 MG TAB PO SCH (08:25)
[2022-09-20] MEDS: Famotidine 20 MG TAB PO PRN (08:25)
[2022-09-20 12:01] VITALS: TEMP 99
[2022-09-20 12:22] VITALS: BP 92/49
== END 2022-09-20 15:00 | disposition home health service (06) | DRG 470 ==
LOC: SDC 09:53 → SURG B 18:35 → IMCU/EMU 09-19 06:31 → OBSVTOIN 09-19 09:37
PROVIDERS: ADMIT Orthopaedic Surgery; ATTEND Orthopaedic Surgery
PROC: 0SR902Z Replacement of Right Hip Joint with Metal on Polyethylene Synthetic Substitute, Open Approach (ICD-10-PCS; principal; 2022-09-17)
DX: M87.851 Other osteonecrosis, right femur (principal); E03.9 Hypothyroidism, unspecified; N18.2 Chronic kidney disease, stage 2 (mild); D63.1 Anemia in chronic kidney disease; E87.6 Hypokalemia; E83.42 Hypomagnesemia; I12.9 Hypertensive chronic kidney disease with stage 1 through stage 4 chronic kidney disease, or unspecified chronic kidney disease; R53.81 Other malaise; I95.2 Hypotension due to drugs; Z96.642 Presence of left artificial hip joint; Z20.822 Contact with and (suspected) exposure to COVID-19; Z88.1 Allergy status to other antibiotic agents; Z88.6 Allergy status to analgesic agent; Z91.040 Latex allergy status; Z79.82 Long term (current) use of aspirin; Z79.899 Other long term (current) drug therapy; Z90.710 Acquired absence of both cervix and uterus; Z98.890 Other specified postprocedural states; Z87.891 Personal history of nicotine dependence
CPT/HCPCS: 36415; 36416; 72193; 80048; 80053; 82533; 83735; 84443; 85025; 86850; 86900; 86901; 96374; 96375; 96376; C1776; J0360; J1100; J1170; J1885; J2250; J2405; J2550; J2704; J2795; J3010; J3370-JW; J3475; J3490; J7030; J7050; Q9967; S0020; U0002